=== PATIENT | female | born 1960 | race Caucasian/White ===

== ENCOUNTER 2016-11-19 17:48 | Emergency (ER) | payer OTHER ==
[~2016-11-19] VITALS: Ht 162.6 cm; Wt 50.0 kg
[2016-11-19 17:52] VITALS: BP 122/76; PULSE 68; RESP 18; O2SAT 99
--- NOTE | 2016-11-19 19:12 | DRSVH ---
PROCEDURE: X-RAY RIGHT WRIST COMPLETE, MINIMUM THREE VIEWS ([id number]) INDICATIONS: dog bite, swollen, deformed. TECHNIQUE: 4 views of the wrist were acquired. COMPARISON: None. FINDINGS: Bones: No fractures or dislocations. No suspicious bony lesions. Scaphoid view: No visualized fracture. However there is overlap of the scaphoid. Soft tissues: No suspicious soft tissue calcifications. Areas of air are noted within the soft tissu es at the level of the wrist. IMPRESSION: No visualized fracture. Air is noted within the soft tissues at the level of the wrist an d proximal hand. This could be reflective of recent trauma. Recommend correlation for potential infec tion. Dictated by: Marilyn Hudson M.D. on 11/19/2016 at 19:10 Approved by: Marilyn Hudson M.D. on 11/19/2016 at 19:10
[2016-11-19] MEDS ORDERED: 0.9% Sodium Chloride 1,000 ML IV ONE (19:13)
[2016-11-19] MEDS ORDERED: HYDROmorphone 0.5 mg/0.5 mL iSecure Syringe IVPUSH PRN (19:15)
[2016-11-19] MEDS ORDERED: Tetanus Immune Globulin 250 Unit/mL Inj IM ONE (19:15)
[2016-11-19] MEDS ORDERED: HYDROcodone-APAP 5-325 mg Tablet PO ONE (19:15)
[2016-11-19] MEDS ORDERED: Ondansetron 2 mg/mL 2 mL Inj IV PRN (19:15)
[2016-11-19] MEDS ORDERED: metroNIDAZOLE Inj 500 MG in IV Premix 1 EACH IV ONE (19:25)
[2016-11-19] MEDS ORDERED: Doxycycline Inj 100 MG in Dextrose 5% Minibag Plus 100 ML IV ONE (19:25)
[2016-11-19] MEDS ORDERED: Lidocaine 1%-Epi 1:100,000 20 mL Inj ONE (19:54)
--- NOTE | 2016-11-19 21:18 | ED.REPORT ---
HPI-Bite: Human/Animal Date of Service Nov 19, 2016 ED Provider: Lazaro Hatfield DO History of Present Illness: Patient is a 56 y.o. medical history of Depression, insomnia. Presents to ED with dog bite occured at 1630 today by family domesticated dog to right wrist. Patient stated that dog clamped down on right wrist and bit her thigh. Associated with painful wrist pain and decreased ROM to pain, DEnies numbness and tingling, fevers, chills, nausea, vomiting. Nursing Notes Stated Complaint: DOG BITES/ R ARM & LEG Chief Complaint: General Complaint Nursing Notes Reviewed: Yes Allergies: Coded Allergies: Penicillins (Verified Allergy, Severe, Rash,Itching,, 11/19/16) Sulfa (Sulfonamide Antibiotics) (Verified Allergy, Severe, Rash,Itching,, 11/19/16) amoxicillin (Verified Allergy, Severe, Rash,Itching,, 11/19/16) codeine (Verified Adverse Reaction, Unknown, Nausea,Vomiting, 11/19/16) Scheduled Doxycycline Hyclate (Doxycycline Hyclate) 100 Mg Tablet 100 MG PO BID Metronidazole (Flagyl) 500 Mg Tablet 500 MG PO Q8H General Time Seen by MD: 19:12 Chief Complaint Animal bite, Dog bite Hx Obtained From: Patient, Spouse Arrived By: Walk-in Onset Occurred: 1 - 4 hours ago Context of Onset: Occurred at home Symptom Duration: Since onset Location: : Wrist right Quality: Aching, Painful, Sharp, Throbbing Radiation: Does not radiate Context: Immunizations Immunizations: Tetanus not up to date Recent Healthcare: No recent doctor visit Risk Factors Rabies Risk Stratification Dog - low risk Domestic animal Vaccinations not UTD Bite Infection Risk: Deep puncture Extensive crush Hand bite Past Medical History Past Medical History DEpression insomnia Past Surgical History none reported Smoking History Never Smoker Social History Alcohol Use: Denies alcohol use Review of Systems Basic Review of Systems Eyes: Vision NL, No discharge ENT: Hearing NL, No pain, No nasal congestion, No pharyngeal pain Respiratory: No shortness of breath, No cough, No wheeze Cardiovascular: No chest pain, No dyspnea on exertion, No orthopnea, No parox noct dyspnea, No palpitations GI: No abdominal pain, No anorexia, No nausea, No vomiting : No dysuria, No frequency Neurologic: NL mental status, No weakness, No numbness Psychiatric: Normal thought content Constitutional: Denies: Chills, Fatigue, Fever Skin: Reports Swelling Complete sys rev & neg: except as marked. Physical Exam Vital Signs Vital Signs (First) Date Time Temp Pulse Resp B/P Pulse Ox O2 Delivery O2 Flow Rate FiO2 11/19/16 17:52 36.6 68 18 122/76 99 Room Air Initial VS: Reviewed Head / Eyes: Atraumatic, Normocephalic, PERRL ENT: Mucous membranes moist, Conjunctiva normal, No scleral icterus Neck: Supple, Non-tender, Full range of motion Respiratory: Breath sounds normal, Clear to auscultation, No respiratory distress Cardiovascular: Regular rate & rhythm, Intact distal pulses Abdomen / GI: Soft, Non-tender, No guarding, No rebound, No distention Right Hand: Positive: Erythema present, High-press punct wound (Three puncture wounds on dorsum of right wrist 2.5cm x 0.3cmx0.3cm; 1cmx.2cmx.1cm; .3cmx.1cm..1cm Two puncture wound on palmar aspect of right wrist 1cmx.2cmx.2xm ; .3cmx.3xmx.2cm), ROM reduced, Swelling present... (Moderate), Tenderness present... (Severe), Warmth present Left Thigh: Positive: Erythema present (abrasion of left anterior thigh no puncture/bite wound noted.), Swelling present... (Mild) Interpretation & Diagnostics Lab Results Interpretation Test 11/19/16 19:40 Hold Purple Top Tube Received (Received) Hold Blue Top Tube Received (Received) Hold Red Top Tube Received (Received) Hold [place] Top Tube Received (Received) Hold Bear Top Tube Received (Received) Procedures Bite Wound Management Three puncture wounds on dorsum of right wrist 2.5cm x 0.3cmx0.3cm; 1cmx.2cmx.1cm; .3cmx.1cm..1cm Two puncture wound on palmar aspect of right wrist 1cmx.2cmx.2xm; .3cmx.3xmx.2cm Wound anestesized, cleaned and debrieded Wounds explored to depth, no foreign bodies present, no visualization of neurovascular bundle, no tendonous involvement noted. Wound on dorum of hand 2.5cm x 0.3cmx0.3cm anestesized, Wound closed with two 4-0 vycril sutures dressed and splinted EBL <2cc Time: 20:25 Procedure Performed by: ED resident Consent / Setup / Site Prep: Informed consent provided, Consent from patient Skin Preparation Agent: [place]urcl[place], Normal saline Local Anesthesia: Lidocaine w epi 1% Debridement: Yes, Moderate Irrigation: Copious, 100 cc Post-Procedure / Complications: Dressing placed, Wound partially closed, No complications, Tolerated procedure well, Patient stable Re-Eval/Medical Decision Med Decision/Clinical Course Patient is a 56 t.o. F sustained a dog bite on right wrist prior to arrival. Patient required wound clening and debridement, antibiotic therapy and pain managent, vacination for tetnaus, wound closure. Antibiotics started in ED Doxycycline 100 mg IV Flagyl 500 mg IV Wound patitally closed with two sutures 4-0 vicryl to allow wound to heal and drain Counseled Regarding: Diagnosis, Lab results, Need for follow-up, When/why to return to ED Discharge & Departure Impression: Primary Impression: Dog bite of right wrist Encounter type: initial encounter Qualified Code: S61.551A - Open bite of right wrist, initial encounter Additional Impression: Swelling of joint, wrist, right Disposition: Home Discharge Condition All VS Reviewed: Yes Condition: Stable Additional Instructions: During you visit to [facility] Emergency Department we obtained blood work for infectious markers, hemoglobin levels, and electrolytes. We obtained an X-Ray of your right wrist which was negative for fracture. You wound on the top of your wrist was closed with two sutures, change dressing three times per day, monitor for signs of infection, All your lab values were within normal limits and your imaging showed no acute processes or abnormalities. Your vital signs were stable and safe for discharge. We will send you home with - 10 day course of Antibiotics -Doxycycline 100 mg by mouth twice daily, when taking avoid sunlight - Flagyl 500 mg three times daily by mouth, avoid alcohol - Pain medications Percocet 5-325 mg PO every 6 hours for pain - Nausea medications - Refill for When taking Percocet pain medications DO NOT drive, DO NOT drink alcohol, DO NOT take extra acetaminophen (Tylenol). Do not hesitate to call emergency services or your primary care physician if you experience any of the following. - High unrelenting fevers. - Uncontrolled vomiting. - Severe hypertension. - Syncope or loss of consciousness. - Chest pain or severe shortness of breath. Follow up with your primary care physician in 48-72 hours for wound check following your emergency department visit for medication checks and general well -being. You dog will need to be tested for rabies, please make a vet appointment to have your pet tested. Referrals: Jorge L Patterson MD (PCP) Attending Statement I took a history and performed a physical examination. I was there during the critical part of the wound care. The wounds look good. I reviewed the x-rays. I do not see any acute fractures. We will place her on prophylactic antibiotics. Wound check in 3 days. Routine opiate and animal bite instructions given. Dog rabies vaccination complete copies to: Jorge L Patterson MD, AARON J DO Nov 19, 2016 19:13 Lazaro Hatfield DO Nov 20, 2016 18:53
[2016-11-19] MEDS ORDERED: METR500T PO (21:20)
[2016-11-19] MEDS ORDERED: _oxyCODONE/APAP 5-325 mg Tablet PO PRN (21:20)
[2016-11-19] MEDS ORDERED: DOXY100T2 PO (21:20)
[2016-11-19] MEDS ORDERED: _Ondansetron ODT 4 mg Tablet PO PRN (21:20)
[2016-11-19 22:28] VITALS: BP 101/54; PULSE 89; RESP 16; O2SAT 98
[2016-11-19] MEDS ORDERED: TdaP Vaccine 0.5 mL Inj IM ONE (22:40)
[2016-11-19 23:03] VITALS: BP 101/54; PULSE 89; RESP 16; O2SAT 98
== END 2016-11-19 23:04 | disposition home or self-care (01) ==
LOC: SED 17:48
DX: S61.551A Open bite of right wrist, initial encounter (principal); S70.312A Abrasion, left thigh, initial encounter; W54.0XXA Bitten by dog, initial encounter; Y93.89 Activity, other specified; Y92.009 Unspecified place in unspecified non-institutional (private) residence as the place of occurrence of the external cause; Y99.8 Other external cause status; Z23 Encounter for immunization; Z88.0 Allergy status to penicillin; Z88.1 Allergy status to other antibiotic agents; Z88.2 Allergy status to sulfonamides; Z88.5 Allergy status to narcotic agent
CPT/HCPCS: 12002; 36415; 73110; 90471; 90715; 96361; 96365; 96375; 97597; 99285; J1170; J2405; J3490